=== PATIENT | female | born 1995 | race Caucasian/White ===

== ENCOUNTER 2017-05-26 15:14 | Inpatient (IN) | payer MEDICAID ==
[~2017-05-26] VITALS: Ht 162.6 cm; Wt 122.0 kg
[~2017-05-26 15:14] MED LIST: CYCL-1 PO; NAPR500T6 PO; ONDA4TAB6 PO
[2017-05-26] MEDS ORDERED: ketorolac tromethamine 15mg/ml inj. IV ONE (16:55)
[2017-05-26] MEDS ORDERED: acetaminophen 325mg tablet PO ONE ×2 (16:55→19:30)
[2017-05-26] MEDS ORDERED: normal saline 1000ML IV soln IVB ONE ×3 (16:55→19:30)
[2017-05-26] MEDS ORDERED: ondansetron/PF 4mg/2ml inj IV ONE (16:55)
[2017-05-26 17:35] LABS: BASOPHILS % (AUTO) 0.2 % (0-1); EOSINOPHILS # (AUTO) 0.1 X10'3 (0-0.9); EOSINOPHILS % (AUTO) 0.7 % (0-6); HEMATOCRIT 39.9 % (35.0-45.0); HEMOGLOBIN 13.7 g/dl (12.0-16.0); LYMPHOCYTES # (AUTO) 0.8 X10'3 (1.1-4.8); LYMPHOCYTES % (AUTO) 8.3 % (21-51); MEAN CORPUSCULAR HEMOGLOBIN 27.9 PG (27.0-31.0); MEAN CORPUSCULAR HGB CONC 34.4 % (33.0-36.5); MEAN CORPUSCULAR VOLUME 81.1 FL (78-98); MEAN PLATELET VOLUME 9.2 FL (7.4-10.4); MONOCYTES # (AUTO) 0.5 X10'3 (0-0.9); MONOCYTES % (AUTO) 5.1 % (2-12); NEUTROPHILS % (AUTO) 85.7 % (42-75); PLATELET COUNT 260 X10'3 (140-440); RED BLOOD COUNT 4.92 X10'6 (4.20-5.60); RED CELL DISTRIBUTION WIDTH 13.9 % (11.5-14.5); WHITE BLOOD COUNT 9.3 X10'3 (4.5-11.0)
[2017-05-26 17:48] LABS: URINE HCG NEGATIVE (NEG)
[2017-05-26 17:52] LABS: CLARITY,URINE CLEAR (Clear); COLOR,URINE YELLOW (Yellow); GLUCOSE, URINE NEGATIVE (Neg); KETONES,URINE TRACE mg/dl (Neg); LEUKOCYTE ESTERASE ,URINE MODERATE (Neg); NITRITES, URINE NEGATIVE (Neg); OCCULT BLOOD,URINE LARGE (Neg); PH,URINE 6.5 (4.8-8.0); PROTEIN,URINE NEGATIVE (Neg); UROBILINOGEN,URINE 0.2 E.U/dL (0.2-1.0)
[2017-05-26 17:54] LABS: UA COLLECTION TYPE CLN CATCH MIDSTREAM
[2017-05-26 18:02] LABS: ALANINE AMINOTRANSFERASE 49 U/L (12-78); ALBUMIN 3.4 G/DL (3.4-5.0); ALBUMIN/GLOBULIN RATIO 0.8 (1.1-1.5); ALKALINE PHOSPHATASE 104 IU/L (20-180); ANION GAP 11 (8-16); ASPARTATE AMINO TRANSFERASE 27 U/L (10-37); BLOOD UREA NITROGEN 5 MG/DL (7-18); BUN/CREATININE RATIO 5.3 (6.6-38.0); CALCIUM 8.3 MG/DL (8.5-10.1); CHLORIDE 101 MMOL/L (99-107); CREATININE 0.95 MG/DL (0.40-0.90); GLUCOSE 90 MG/DL (70-104); POTASSIUM 3.2 MMOL/L (3.5-5.1); SODIUM 139 MMOL/L (135-145); TOTAL CARBON DIOXIDE 26.7 MMOL/L (24-32); TOTAL PROTEIN 7.6 G/DL (6.4-8.2); eGFR 75 ML/MIN
[2017-05-26 18:05] LABS: BACTERIA,URINE 2+ /HPF (Neg); RBC,URINE 0-2 /HPF (0-2); SQUAMOUS EPITHELIAL CELL,UR MANY /LPF (FEW)
[2017-05-26] MEDS ORDERED: cefoxitin sod inj 2,000 MG in normal saline 100ml IV soln 100 ML IV SCH (19:20)
[2017-05-26] MEDS ORDERED: doxycycline inj 100 MG in normal saline 100ml IV soln 100 ML IV SCH (19:20)
[2017-05-26] MEDS ORDERED: temazepam 15mg capsule PO PRN (21:00)
[2017-05-26] MEDS ORDERED: HYDROcodone/acetaminophen 10/325mg tab PO ONE (21:10)
[2017-05-26] MEDS ORDERED: magnesium 2GM in 50ml NS 50 ML IV PRN (23:25)
[2017-05-26] MEDS ORDERED: ondansetron/PF 4mg/2ml inj IV PRN (23:25)
[2017-05-26] MEDS ORDERED: potassium Cl 20 mEq SR tablet PO PRN ×2 (23:25)
[2017-05-26] MEDS ORDERED: HYDROcodone/acetaminophen 5mg/325mg tablet PO PRN (23:25)
[2017-05-26] MEDS: normal saline 1000ml 1,000 ML IV SCH (23:25)
[2017-05-26] MEDS ORDERED: potassium Cl 40MEQ/NS 500ml 500 ML IV PRN ×2 (23:25)
[2017-05-26] MEDS ORDERED: magnesium hydroxide 30ml (MOM) UD suspension PO PRN (23:25)
[2017-05-26] MEDS ORDERED: magnesium 4gm in 100ml NS 100 ML IV PRN (23:25)
[2017-05-26] MEDS ORDERED: mag hydrox/Alum hydrox/simeth 30ml oral suspension PO PRN (23:25)
[2017-05-26] MEDS ORDERED: magnesium Cl slow-release 64mg tablet PO PRN (23:25)
[2017-05-27] MEDS ORDERED: ceFOXitin 1 GM ADDVANTAGE BAG 1,000 MG in normal saline 100ml IV soln 100 ML IV SCH ×3 (04:00)
[2017-05-27] MEDS: HYDROcodone/acetaminophen 10/325mg tab PO PRN ×4 (04:55→21:38)
[2017-05-27 07:15] LABS: BASOPHILS % (AUTO) 0.3 % (0-1); EOSINOPHILS % (AUTO) 0 % (0-6); HEMATOCRIT 33.9 % (35.0-45.0); HEMOGLOBIN 11.7 g/dl (12.0-16.0); LYMPHOCYTES % (AUTO) 17.5 % (21-51); MEAN CORPUSCULAR HEMOGLOBIN 28.1 PG (27.0-31.0); MEAN CORPUSCULAR HGB CONC 34.6 % (33.0-36.5); MEAN CORPUSCULAR VOLUME 81.3 FL (78-98); MEAN PLATELET VOLUME 8.7 FL (7.4-10.4); MONOCYTES # (AUTO) 0.4 X10'3 (0-0.9); NEUTROPHILS # (AUTO) 4.5 X10'3 (1.8-7.7); NEUTROPHILS % (AUTO) 75.2 % (42-75); PLATELET COUNT 196 X10'3 (140-440); RED BLOOD COUNT 4.17 X10'6 (4.20-5.60); RED CELL DISTRIBUTION WIDTH 14.1 % (11.5-14.5)
[2017-05-27 07:29] LABS: ALBUMIN 2.7 G/DL (3.4-5.0); ANION GAP 9 (8-16); BLOOD UREA NITROGEN 4 MG/DL (7-18); BUN/CREATININE RATIO 4.8 (6.6-38.0); CALCIUM 7.5 MG/DL (8.5-10.1); CHLORIDE 108 MMOL/L (99-107); CREATININE 0.83 MG/DL (0.40-0.90); GLUCOSE 98 MG/DL (70-104); MAGNESIUM 1.7 MG/DL (1.5-2.4); POTASSIUM 3.3 MMOL/L (3.5-5.1); SODIUM 143 MMOL/L (135-145); TOTAL CARBON DIOXIDE 25.9 MMOL/L (24-32); eGFR 88 ML/MIN
[2017-05-27] MEDS ORDERED: NO HOME MEDS (07:35)
[2017-05-27] MEDS: K and/or MAG REPLACEMENT MC SCH (08:00)
[2017-05-27] MEDS: lactobacillus rhamnosus 10,000 MMU CELLS/CAPSULE PO SCH ×2 (08:21→20:46)
[2017-05-27] MEDS: ceFOXitin 1 GM ADDVANTAGE BAG 1,000 MG in normal saline 100ml IV soln 100 ML IV SCH ×3 (08:21→23:28)
[2017-05-27] MEDS: heparin, porcine 5000 units/ml vial SQ SCH ×2 (08:22→20:45)
[2017-05-27] MEDS: doxycycline inj 100 MG in normal saline 100ml IV soln 100 ML IV SCH ×2 (09:06→20:54)
[2017-05-27] MEDS: normal saline 1000ml 1,000 ML IV SCH ×2 (09:37→19:25)
[2017-05-27 15:50] VITALS: BP 126/102
[2017-05-27] MEDS: acetaminophen 325mg tablet PO PRN (16:00)
[2017-05-27] MEDS ORDERED: ketorolac tromethamine 15mg/ml inj. IM PRN (16:20)
[2017-05-27] MEDS: ketorolac tromethamine 15mg/ml inj. IV PRN (16:55)
[2017-05-27] MEDS: pantoprazole 40 MG vial IV SCH (17:10)
[2017-05-27 18:00] VITALS: BP 125/68
[2017-05-27] MEDS ORDERED: fluconazole 100mg tablet PO ONE (19:50)
[2017-05-28] VITALS: BP 119/68
[2017-05-28] MEDS: normal saline 1000ml 1,000 ML IV SCH (01:58)
[2017-05-28 04:51] LABS: BASOPHILS % (AUTO) 0.3 % (0-1); EOSINOPHILS % (AUTO) 0.7 % (0-6); HEMATOCRIT 38.2 % (35.0-45.0); HEMOGLOBIN 12.9 g/dl (12.0-16.0); LYMPHOCYTES # (AUTO) 1.6 X10'3 (1.1-4.8); LYMPHOCYTES % (AUTO) 25.5 % (21-51); MEAN CORPUSCULAR HGB CONC 33.7 % (33.0-36.5); MEAN CORPUSCULAR VOLUME 83.3 FL (78-98); MEAN PLATELET VOLUME 9.9 FL (7.4-10.4); MONOCYTES # (AUTO) 0.4 X10'3 (0-0.9); MONOCYTES % (AUTO) 6.9 % (2-12); NEUTROPHILS # (AUTO) 4.1 X10'3 (1.8-7.7); NEUTROPHILS % (AUTO) 66.6 % (42-75); PLATELET COUNT 202 X10'3 (140-440); RED BLOOD COUNT 4.58 X10'6 (4.20-5.60); RED CELL DISTRIBUTION WIDTH 14.2 % (11.5-14.5); WHITE BLOOD COUNT 6.1 X10'3 (4.5-11.0)
[2017-05-28 05:11] LABS: ALBUMIN 2.8 G/DL (3.4-5.0); ANION GAP 6 (8-16); BLOOD UREA NITROGEN 2 MG/DL (7-18); BUN/CREATININE RATIO 2.8 (6.6-38.0); CALCIUM 8.3 MG/DL (8.5-10.1); CHLORIDE 106 MMOL/L (99-107); CREATININE 0.72 MG/DL (0.40-0.90); GLUCOSE 92 MG/DL (70-104); MAGNESIUM 1.8 MG/DL (1.5-2.4); POTASSIUM 4.3 MMOL/L (3.5-5.1); SODIUM 143 MMOL/L (135-145); TOTAL CARBON DIOXIDE 30.9 MMOL/L (24-32); eGFR > 90 ML/MIN
[2017-05-28] MEDS: K and/or MAG REPLACEMENT MC SCH (07:13)
[2017-05-28] MEDS: acetaminophen 325mg tablet PO PRN (07:58)
[2017-05-28 08:00] VITALS: BP 138/83
[2017-05-28] MEDS: doxycycline inj 100 MG in normal saline 100ml IV soln 100 ML IV SCH (08:00)
[2017-05-28] MEDS: pantoprazole 40 MG vial IV SCH (08:02)
[2017-05-28] MEDS: ceFOXitin 1 GM ADDVANTAGE BAG 1,000 MG in normal saline 100ml IV soln 100 ML IV SCH (08:04)
[2017-05-28] MEDS: lactobacillus rhamnosus 10,000 MMU CELLS/CAPSULE PO SCH (08:04)
[2017-05-28] MEDS: heparin, porcine 5000 units/ml vial SQ SCH (08:04)
[2017-05-28] MEDS ORDERED: FLUC150T22 PO (10:17)
[2017-05-28] MEDS ORDERED: DOXY-200 PO (10:17)
[2017-05-28] MEDS: ketorolac tromethamine 15mg/ml inj. IV PRN (11:36)
[2017-05-28] MEDS: HYDROcodone/acetaminophen 10/325mg tab PO PRN (11:38)
[2017-05-29] MEDS ORDERED: pantoprazole 40mg Tablet.DR PO SCH (07:30)
== END 2017-05-28 13:52 | disposition home or self-care (01) | DRG 531 ==
LOC: ER 15:15 → ED HOLD 23:25 → EDBEDREQ 05-27 15:15 → SUR 3N 05-27 15:38
PROVIDERS: ADMIT Internal Medicine; ATTEND Internal Medicine
DX: N73.9 Female pelvic inflammatory disease, unspecified (principal); N39.0 Urinary tract infection, site not specified; E83.52 Hypercalcemia; E66.01 Morbid (severe) obesity due to excess calories; B37.3 Candidiasis of vulva and vagina; F12.90 Cannabis use, unspecified, uncomplicated; E87.6 Hypokalemia; G89.29 Other chronic pain; J02.9 Acute pharyngitis, unspecified; M54.5 Low back pain; N89.8 Other specified noninflammatory disorders of vagina; Z87.440 Personal history of urinary (tract) infections; Z97.5 Presence of (intrauterine) contraceptive device
CPT/HCPCS: 36415; 76856; 80048; 80053; 81001; 81025; 83605; 83735; 84145; 85025; 87040; 87070; 87088; 87210; 87491; 87502; 87503; 96361; 96365; 96366; 96367; 96375; 99285; C9113; J0694; J1644; J1885; J2405; J3480; J3490; J7030

== ENCOUNTER 2018-02-14 20:34 | Emergency (ER) | payer MEDICAID ==
[~2018-02-14] VITALS: Ht 162.6 cm; Wt 128.7 kg
[~2018-02-14 20:34] MED LIST changes: -CYCL-1 PO; +FLUC150T22 PO; -NAPR500T6 PO; -ONDA4TAB6 PO
[2018-02-14 20:46] VITALS: BP 159/111
[2018-02-14] MEDS ORDERED: INHA1INH2 (21:35)
[2018-02-14] MEDS ORDERED: ALBU18HF2 INH (21:35)
== END 2018-02-14 21:56 | disposition home or self-care (01) ==
LOC: ER 20:35
DX: J06.9 Acute upper respiratory infection, unspecified (principal); J45.909 Unspecified asthma, uncomplicated; G89.29 Other chronic pain; F17.200 Nicotine dependence, unspecified, uncomplicated; F12.90 Cannabis use, unspecified, uncomplicated; Z79.899 Other long term (current) drug therapy
CPT/HCPCS: 99283

== ENCOUNTER 2018-04-02 16:03 | Emergency (ER) | payer MEDICAID, OTHER ==
[~2018-04-02] VITALS: Ht 162.6 cm; Wt 128.6 kg
[~2018-04-02 16:03] MED LIST changes: +ALBU18HF2 INH; +INHA1INH2
[2018-04-02 16:25] VITALS: BP 129/87
[2018-04-02] MEDS ORDERED: guaiFENesin/codeine phos 10ml UD oral syrup PO ONE (17:10)
[2018-04-02] MEDS ORDERED: acetaminophen 325mg tablet PO ONE (17:10)
[2018-04-02] MEDS ORDERED: TAM75C PO (19:31)
[2018-04-02] MEDS ORDERED: GUAI473S11 PO (19:31)
[2018-04-02] MEDS ORDERED: BENZ-16 PO (19:31)
== END 2018-04-02 20:14 | disposition home or self-care (01) ==
LOC: ER 16:03
DX: B34.9 Viral infection, unspecified (principal); J45.909 Unspecified asthma, uncomplicated; G89.29 Other chronic pain; M54.9 Dorsalgia, unspecified; F12.90 Cannabis use, unspecified, uncomplicated
CPT/HCPCS: 87502; 87503; 99283

== ENCOUNTER 2020-08-16 11:06 | Emergency (ER) | payer MEDICAID ==
[~2020-08-16] VITALS: Ht 162.6 cm; Wt 124.7 kg
[2020-08-16 11:19] VITALS: BP 125/83
[2020-08-16] MEDS ORDERED: CYCL-1 PO (13:10)
[2020-08-16] MEDS ORDERED: ketorolac tromethamine 15mg/ml inj. IM ONE (13:15)
== END 2020-08-16 13:30 | disposition home or self-care (01) ==
LOC: ER 11:07
DX: S39.012A Strain of muscle, fascia and tendon of lower back, initial encounter (principal); F12.90 Cannabis use, unspecified, uncomplicated; J45.909 Unspecified asthma, uncomplicated; G89.29 Other chronic pain; Z87.440 Personal history of urinary (tract) infections; Z79.899 Other long term (current) drug therapy; X50.9XXA Other and unspecified overexertion or strenuous movements or postures, initial encounter; Y93.89 Activity, other specified; Y92.89 Other specified places as the place of occurrence of the external cause; Y99.8 Other external cause status
CPT/HCPCS: 96372; 99283; J1885

== ENCOUNTER 2023-03-07 13:07 | Emergency (ER) | payer MEDICAID ==
[~2023-03-07] VITALS: Ht 170.2 cm; Wt 132.9 kg
[~2023-03-07 13:07] MED LIST changes: +CYCL-1 PO
[2023-03-07 13:11] VITALS: BP 142/92; PULSE 100; TEMP 96.5; O2SAT 98
[2023-03-07 13:39] LABS: URINE HCG NEGATIVE (NEG)
[2023-03-07] MEDS ORDERED: ketorolac trometh inj. 60 MG/2 ML VIAL IM ONE (13:45)
[2023-03-07] MEDS ORDERED: IBUP-1984 PO (13:48)
[2023-03-07] MEDS ORDERED: CYCL-1 PO (13:48)
[2023-03-07 14:18] VITALS: RESP 18
== END 2023-03-07 15:01 | disposition home or self-care (01) ==
LOC: ER 13:07
DX: S39.012A Strain of muscle, fascia and tendon of lower back, initial encounter (principal); S29.019A Strain of muscle and tendon of unspecified wall of thorax, initial encounter; X58.XXXA Exposure to other specified factors, initial encounter; Y93.89 Activity, other specified; Y92.89 Other specified places as the place of occurrence of the external cause; Y99.8 Other external cause status
CPT/HCPCS: 81025; 96372; 99283; J1885